=== PATIENT | female | born 1970 | race Caucasian/White ===

== ENCOUNTER → 2023-11-03 15:20 | Outpatient (REF) | payer OTHER, SELFPAY | LOC: HWRAD 15:20 | PROVIDERS: ATTENDING PHYSICIAN Nurse Practitioner Family | DX: J18.9 Pneumonia, unspecified organism (principal) | CPT/HCPCS: 71046 ==

== ENCOUNTER → 2023-11-21 12:18 | Outpatient (REF) | payer OTHER, SELFPAY | LOC: WDC 12:18 | PROVIDERS: ATTENDING PHYSICIAN Nurse Practitioner Family | DX: Z12.31 Encounter for screening mammogram for malignant neoplasm of breast (principal) | CPT/HCPCS: 77063; 77067 ==

== ENCOUNTER → 2024-09-05 11:46 | Outpatient (REF) | payer OTHER, SELFPAY | LOC: HWRAD 11:46 | PROVIDERS: ATTENDING PHYSICIAN Nurse Practitioner Family | DX: M25.521 Pain in right elbow (principal) | CPT/HCPCS: 73080 ==

== ENCOUNTER → 2024-12-10 10:28 | Outpatient (REF) | payer OTHER, SELFPAY | LOC: HWWDC 10:28 | PROVIDERS: ATTENDING PHYSICIAN Nurse Practitioner Family; FAMILY PHYSICIAN Nurse Practitioner Family | DX: Z12.31 Encounter for screening mammogram for malignant neoplasm of breast (principal) | CPT/HCPCS: 77063; 77067 ==

== ENCOUNTER → 2024-12-12 10:00 | Outpatient (REF) | payer OTHER, SELFPAY | LOC: HWRAD 10:00 | PROVIDERS: ATTENDING PHYSICIAN Nurse Practitioner Family; FAMILY PHYSICIAN Nurse Practitioner Family | DX: N93.9 Abnormal uterine and vaginal bleeding, unspecified (principal) | CPT/HCPCS: 76830; 76856 ==

== ENCOUNTER → 2024-12-17 09:32 | Outpatient (REF) | payer OTHER, SELFPAY | LOC: WDC 09:32 | PROVIDERS: ATTENDING PHYSICIAN Nurse Practitioner Family; FAMILY PHYSICIAN Nurse Practitioner Family | DX: R92.8 Other abnormal and inconclusive findings on diagnostic imaging of breast (principal) | CPT/HCPCS: 76642 ==

== ENCOUNTER → 2024-12-21 11:59 | Outpatient (REF) | payer OTHER, SELFPAY ==
--- NOTE | 2024-12-21 15:26 | OID.BR.INTR ---
[facility] Breast Navigator - Initial
- -
Did not meet patient at time of biopsy. Will follow up per protocol.
== END ==
LOC: WDC 11:59
PROVIDERS: ATTENDING PHYSICIAN Nurse Practitioner Family; FAMILY PHYSICIAN Nurse Practitioner Family
DX: N63.12 Unspecified lump in the right breast, upper inner quadrant (principal)
CPT/HCPCS: 88305; 19083; A4648

== ENCOUNTER → 2025-01-09 11:49 | Outpatient (REF) | payer OTHER, SELFPAY | LOC: MRI 3T 11:49 | PROVIDERS: ATTENDING PHYSICIAN Surgery; FAMILY PHYSICIAN Nurse Practitioner Family | DX: C50.411 Malignant neoplasm of upper-outer quadrant of right female breast (principal); Z17.0 Estrogen receptor positive status [ER+]; Z17.1 Estrogen receptor negative status [ER-] | CPT/HCPCS: 77049; A9585 ==

== ENCOUNTER → 2025-01-18 08:29 | Outpatient (REF) | payer OTHER, SELFPAY | LOC: RAD 08:29 | PROVIDERS: ATTENDING PHYSICIAN Surgery; FAMILY PHYSICIAN Nurse Practitioner Family | DX: R92.8 Other abnormal and inconclusive findings on diagnostic imaging of breast (principal); K76.9 Liver disease, unspecified | CPT/HCPCS: 76700 ==

== ENCOUNTER 2025-02-04 06:15 | Day surgery (SDC) | payer OTHER, SELFPAY ==
[2025-01-28 08:47] LABS: % Basophils 0.6 % (0-2); % Eosinophils 2.5 % (0-6); % Immature Granulocytes 0.6 % (0-0.5); % Lymphocytes 48.6 % (20.5-51.1); % Neutrophils 40.7 % (42.2-75.2); Absolute Eosinophils 0.2 10^3/uL (0-0.7); Absolute Lymphocytes 3.1 10^3/uL (1.2-3.4); Absolute Monocytes 0.5 10^3/uL (0.1-0.6); Absolute Neutrophils 2.6 10^3/uL (1.4-6.5); Hematocrit 38.9 % (37.0-47.0); Hemoglobin 13.4 g/dL (12.0-16.0); Mean Corp Hgb Conc. 34.4 g/dL (33.0-37.0); Mean Corpuscular Hgb 33.4 pg (27.0-31.0); Mean Platelet Volume 9.2 fL (7.4-10.4); Nucleated Red Blood Cells % 0 %; Platelet Count 214 10^3/uL (130-400); Red Blood Cell Count 4.01 10^6/uL (4.20-5.40); Red Cell Dist. Width 13.2 % (11.5-14.5); White Blood Cell Count 6.4 10^3/uL (4.8-10.8)
[2025-01-28 09:36] LABS: Beta HCG Quantitative < 2.39 mIU/ml
[2025-01-28 09:38] LABS: Blood Urea Nitrogen 14 mg/dl (7-17); Calcium 9.4 mg/dl (8.4-10.2); Carbon Dioxide 25 mmol/L (22-30); Chloride 111 mmol/L (98-107); Glucose 81 mg/dl (70-99); Sodium 147 mmol/L (135-145); eGFR > 60.00
[2025-01-28 14:02] VITALS: BMI 31.2
[2025-02-04] VITALS (8 sets, daily range): BP systolic 132–157; BP diastolic 73–97; BMI 31.2
[2025-02-04] MEDS: TYLENOL 1000 MG PO (09:27)
[2025-02-04] MEDS: NEURONTIN 300 MG PO (09:27)
[2025-02-04] MEDS: NORMOSOL-R/PLASMALYTE-A 1000 IV (09:28)
--- NOTE | 2025-02-04 13:39 | W.IMMPOSTOP ---
Surgical Immed Post Op Note
-
Primary Surgeon: Karolina Cruz DO
Assisting Surgeon: none
Pre-op Diagnosis: Menorrhagia; endometrial mass
Post-op Diagnosis: same; endometrial polyp
Procedure Performed: Hysteroscopy D&C polypectomy with Myosure
Anesthesia Type: general LMA Dr Velazquez
Specimen / Cultures: 1. endocervical curettings 2. endometrial curettings 3. fragments of resected endoemtrial mass
Estimated Blood Loss: 2ml
Fluid deficit: 90mL NSS
Complications: none
Operative Findings: Uterus sounded to 8cm; bilateral tubal ostia seen. Endometrial polyp seen.
Counts correct times 2.
stable to recovery.
== END 2025-02-04 15:23 | disposition home or self-care (01) ==
LOC: SDS 06:15
PROVIDERS: ATTENDING PHYSICIAN Obstetrics & Gynecology; FAMILY PHYSICIAN Nurse Practitioner Family
DX: N84.0 Polyp of corpus uteri (principal); N92.0 Excessive and frequent menstruation with regular cycle; D26.1 Other benign neoplasm of corpus uteri
CPT/HCPCS: 58558; 88305; 80048; 84702; 85025; 86850; 86900; 86901

== ENCOUNTER 2025-02-26 06:39 | Inpatient (IN) | payer OTHER, SELFPAY ==
[2025-02-22 15:27] LABS: Prealbumin (Transthyretin) 26.7 mg/dl (17.6-36.0)
[2025-02-22 15:47] LABS: Vitamin D, 25-OH*** 32.5 ng/mL (30-80)
[2025-02-26] VITALS (10 sets, daily range): BP systolic 5–141; BP diastolic 62–90; BMI 32.4
[2025-02-26] MEDS: NORMOSOL-R/PLASMALYTE-A 1000 IV (07:40)
[2025-02-26] MEDS: TYLENOL 1000 MG PO ×2 (07:51→20:51)
[2025-02-26] MEDS: LOVENOX 40 MG SC (08:31)
--- NOTE | 2025-02-26 15:02 | W.IMMPOSTOP ---
Surgical Immed Post Op Note
-
Primary Surgeon: JONATHAN Staton MD
Assisting Surgeon:
Pre-op Diagnosis: Breast CA
Post-op Diagnosis: Same
Procedure Performed: Bilateral immediate breast reconstruction with tissue expanders, adjacent tissue transfer,
Anesthesia Type: General
Specimen / Cultures: Per Dr. Arce
Estimated Blood Loss: 40cc
Complications: None
Operative Findings: as expected
[2025-02-26] MEDS: NEURONTIN 100 MG PO ×2 (17:29→21:36)
[2025-02-26] MEDS: COLACE 100 MG PO (20:51)
[2025-02-26] MEDS: ZOLOFT 50 MG PO (21:36)
[2025-02-26] MEDS: ANCEF 5 IV (21:36)
[2025-02-27 00:05] VITALS: BP 120/73
[2025-02-27 03:03] VITALS: BP 103/63
[2025-02-27] MEDS: TYLENOL 1000 MG PO ×2 (03:10→08:20)
[2025-02-27] MEDS: ANCEF 5 IV (05:39)
[2025-02-27 07:18] LABS: Hematocrit 30.9 % (37.0-47.0); Hemoglobin 10.4 g/dL (12.0-16.0)
[2025-02-27 07:40] VITALS: BP 122/71
[2025-02-27 08:05] LABS: Blood Urea Nitrogen 6 mg/dl (7-17); Calcium 8.4 mg/dl (8.4-10.2); Carbon Dioxide 24 mmol/L (22-30); Chloride 109 mmol/L (98-107); Estimated Creatinine Clearance 110 ml/min; Glucose 113 mg/dl (70-99); Potassium 4.3 mmol/L (3.5-5.1); Sodium 137 mmol/L (135-145); eGFR > 60.00
[2025-02-27] MEDS: NEURONTIN 100 MG PO (08:20)
[2025-02-27] MEDS: NORVASC 2.5 MG PO (08:20)
[2025-02-27] MEDS: AVAPRO 300 MG PO (08:20)
[2025-02-27] MEDS: COLACE 100 MG PO (08:20)
--- NOTE | 2025-02-27 09:54 | CM ---
CM met with patient in room. Patient does not have a history of VN, SNF or DME. Patient is active with her PCP. Patent uses [facility] in [place] for medication services.
Patient is agreeable to [facility]. CHIQUIS updated [facility] Admission RN with new referral.
PLAN: Home with [facility]
--- NOTE | 2025-02-27 10:49 | VNURNOTE ---
Home Health Liaison met with patient and spouse at bedside to discuss [facility] nurse/therapy, visits, schedule and homebound status. Patient is agreeable and understands that visits at home will be 2-3 x per week to assess and teach medical and drain
management. Patient is aware that [facility] will contact them for start of care in 1-2 days after discharge from .
[facility] referral completed in [facility].
--- NOTE | 2025-02-27 10:49 | W.DCSUMMARY ---
Discharge Summary
Discharge Data
Date of Admission: 02/26/25
Date of Discharge: 02/27/25
Discharge Plan
-
Patient Disposition: Home (Routine Discharge)
Discharge Diagnosis/Procedures: s/p b/l mastectomy and immediate reconstruction
Condition: Good
Diet: Regular
Activity: No strenuous activity
Additional Activity: No heavy lifting >10lbs, T KWAME arms for ROM
Driving Restrictions: Not until seen by your Dr
Bathing Restrictions: OK to Shower
Other Services: [facility]
Wound Care: Nitro bid to nipples, small amout; ABD pads and compression bra; record drain output twice daily and strip as needed
Referrals:
Gerald Mills CRNP [Family Provider] -
Prescriptions:
New
tramadol 50 mg Tablet
50 mg PO Q6HPRN PRN (Reason: pain) 7 Days Qty: 15 0RF
acetaminophen [Tylenol Extra Strength] 500 mg Tablet
1,000 mg PO Q6H 30 Days Qty: 240 0RF
docusate sodium 100 mg Capsule
100 mg PO BID 14 Days Qty: 28 0RF
gabapentin 100 mg Capsule
100 mg PO TID 90 Days Qty: 270 0RF
diazepam 5 mg Tablet
5 mg PO TIDPRN PRN (Reason: Muscle Spasms) 14 Days Qty: 24 0RF
cefadroxil 500 mg capsule
500 mg PO BID Qty: 42 0RF
nitroglycerin [Nitro-Bid] 2 % ointment
1 inch transdermal DAILY 3 Days Qty: 30 0RF
Continued
cetirizine [Zyrtec] 10 mg Tablet
10 mg PO HS
sertraline [Zoloft] 50 mg Tablet
50 mg PO HS
irbesartan [Avapro] 300 mg Tablet
300 mg PO DAILY
cholecalciferol (vitamin D3) [Vitamin D3] 50 mcg (2,000 unit) Capsule
50 mcg PO DAILY
mecobalamin (vitamin B12) [B12 Active] 1,000 mcg Tablet,Chewable
1,000 mcg PO DAILY
amlodipine 2.5 mg Tablet
2.5 mg PO DAILY
fluticasone propionate 50 mcg/actuation [place],Suspension
1 spray INTRANASAL PRN PRN (Reason: allergies)
melatonin 5 mg Tablet
5 mg PO HS PRN (Reason: sleep)
Discharge Orders:
Discharge Patient (As Directed); Ordered 02/27/25
Ordered By: Landon Staton
Discharge Date and Time
Print Language: [place]
--- NOTE | 2025-02-27 10:49 | W.PN.PLAS ---
Progress Note
Objective Data
Vital Signs
Temp Pulse Resp BP Pulse Ox
98.6 F 74 16 122/71 98
02/27/25 07:40 02/27/25 07:40 02/27/25 07:40 02/27/25 07:40 02/27/25 08:16
Intake and Output
02/26/25 02/27/25 02/28/25
06:59 06:59 06:59
Intake Total 1030 / 1030
Output Total 297 / 297 170 / 170
Balance 733 / 733 -170 / -170
Intake:
Oral fluids 720 / 720
IV fluids (Total) 300 / 300
Normosol 300 / 300
IV piggybacks 10
Output:
Drain Output (Total) 297 / 297 170 / 170
Left Lower Breast C 105 / 105 30 / 30
Left Lower Breast Jose-Campos
D
Right Lower Breast Jose- 17 / 17 60 / 60
Campos A
Right Lower Breast Jose- 150 / 150 80 / 80
Campos B
Other:
Number of approximated MODERATE 2
amounts of urine
Lab Results
02/27/25 06:13
02/27/25 06:13
Assessment / Plan
Wound stable. Patient continues to improve. Doing well. Patient anxious to go.
Patient is stable. Will discharge to home once patient is able to ambulate, void, tolerate a PO diet and pain is adequately controlled.
Visiting Nurse care ordered / not ordered.
Wound care discussed with patient.
Follow up within days.
Follow up with family physician for any medical issues.
Patient given any appropriate scripts at office pre op visit.
[2025-02-27 11:15] VITALS: BP 122/73
--- NOTE | 2025-02-28 12:12 | W.IMMPOSTOP ---
Surgical Immed Post Op Note
-
Primary Surgeon: Yazmin
Assisting Surgeon: None
Pre-op Diagnosis: Right breast ca
Post-op Diagnosis: Right breast ca
Procedure Performed: Bilateral mastectomies and right sentinel node mapping and biopsy
Anesthesia Type: LMA general
Specimen / Cultures: Bilateral breasts, right sentinel nodes
Estimated Blood Loss: 50cc
Complications: None
Operative Findings: Neg nodes on frozen
--- NOTE | 2025-02-28 12:13 | OR.RPT ---
Operative Report
Operative Report
Date of surgery: 02/26/2025
Surgeon: Yazmin
Pre-op diagnosis: Right breast carcinoma
Post-op diagnosis: Right breast carcinoma
Procedure bilateral mastectomies and right sentinel lymph node mapping and biopsy
The patient is a 54-year-old female with right breast carcinoma who desired treatment through bilateral mastectomies right sentinel lymph node mapping and biopsy and immediate reconstruction with bilateral tissue expanders performed by Dr. Staton.
On the day prior to the procedure the patient presented to the breast imaging center where technetium radiotracer was injected into the right breast parenchyma. On the day of surgery the patient presented to the same-day surgical services where she
verified site and procedure. She was prepped and DVT and antibiotic prophylaxis were provided. Dr. Ortiz had marked the proposed incisions which included performing a nipple sparing mastectomy basing its vascularity on an inferior skin flap
which will be used to perform a simultaneous mastopexy.
Patient was taken to the operating room and in the supine position general anesthesia with an LMA mask was induced. Arias catheter was inserted using aseptic technique and both breast and axillae were prepped and draped in usual sterile fashion.
We began with the left side and using the incision was marked by Dr. Ortiz they were entered sharply with the blade. Skin flaps were elevated with the PlasmaBlade and a lighted retractor. The breast was taken off the chest wall and a superior to
inferior dimension. Time out of body was noted and specimens were oriented for the pathologist. Both sides were performed in the same fashion and on the right side after the breast was removed, the pectoral fascia was incised and the gamma probe
was used to identify sentinel node packets. There were 3 packets resected with a total of 5 lymph nodes which were negative on frozen section analysis. Feeding vessels to the nose were controlled with 3-[address] Staton continue with the
reconstructive portion of the procedure but at this juncture all sponge needle and instrument counts were correct
([id number], right [id number])
Menlo Node Bx Breast Cancer
Menlo Node Bx Breast Cancer
Operation performed with curative intent: Yes
Tracer(s) to ID Menlo Nodes in Non-Neoadjuvant setting: Radioactive Tracer
Tracer(s) to ID Sentinal Nodes in the Neoadjuvant Setting: N/A
All nodes at end of dye-filled Lymphatic Channel removed: N/A
All Significantly Radioactive Nodes were removed: Yes
All Palpably Suspicious Nodes were Removed: Yes
Bx Proven Pos Nodes Marked Prior to Chemo ID'd & Removed: N/A
== END 2025-02-27 12:29 | disposition home health service (06) | DRG 581 ==
LOC: 2 SOUTH 06:39
PROVIDERS: Surgery; ADMITTING PHYSICIAN Surgery Plastic and Reconstructive Surgery; FAMILY PHYSICIAN Nurse Practitioner Family
PROC: 0HTV0ZZ Resection of Bilateral Breast, Open Approach (ICD-10-PCS; 2025-02-26)
PROC: 0HRV0JZ Replacement of Bilateral Breast with Synthetic Substitute, Open Approach (ICD-10-PCS; 2025-02-26)
PROC: 07B80ZX Excision of Right Internal Mammary Lymphatic, Open Approach, Diagnostic (ICD-10-PCS; 2025-02-26)
PROC: 07B90ZX Excision of Left Internal Mammary Lymphatic, Open Approach, Diagnostic (ICD-10-PCS; 2025-02-26)
DX: C50.411 Malignant neoplasm of upper-outer quadrant of right female breast (principal); Z88.5 Allergy status to narcotic agent
CPT/HCPCS: 88307; 88332; 36415; 38792; 76942; 80048; 82306; 84134; 85014; 85018; 88331; 88342; A9541; C1789; L8000

== ENCOUNTER 2025-06-26 06:19 | Day surgery (SDC) | payer OTHER, SELFPAY ==
[2025-06-26] VITALS (10 sets, daily range): BP systolic 117–155; BP diastolic 69–89; BMI 35.3
[2025-06-26] MEDS: TYLENOL 1000 MG PO (10:51)
[2025-06-26] MEDS: NORMOSOL-R/PLASMALYTE-A 1000 IV (10:52)
--- NOTE | 2025-06-26 13:59 | W.IMMPOSTOP ---
Surgical Immed Post Op Note
-
Primary Surgeon: JONATHAN Staton MD
Assisting Surgeon:
Pre-op Diagnosis: H/o Breast CA, s/p mastectomy
Post-op Diagnosis: Same
Procedure Performed: Bilateral removal of tissue expanders and replacement with silicone gel breast implants, suction assisted lipectomy of trunk
Anesthesia Type: GA
Specimen / Cultures: None
Estimated Blood Loss: 30cc
Complications: None
Operative Findings: As expected
--- NOTE | 2025-06-26 14:02 | OR.RPT ---
Operative Report
Operative Report
Date of surgery: 06/26/2025
Preoperative diagnosis:
1. History of breast cancer
2. 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
Postoperative diagnosis: Same
Procedure:
1. Bilateral removal of tissue expanders, breast
2. Bilateral insertion of silicone gel implants, breast
3. Suction assisted lipectomy of trunk, bilateral chest wall
Anesthesia: General
Complications: None
EBL: 30 cc
Specimens: None
Indications for procedure: Patient is a 55-year-old female with a diagnosis of breast cancer and underwent bilateral mastectomy. She received an immediate reconstruction with tissue expanders at the time and went on to subsequently healed.
Discussion was had about her definitive reconstruction and she desired to proceed with bilateral implant-based reconstruction with silicone gel implants. Risk of implants were reviewed at length and FDA checklist were reviewed and signed. Risks
include rupture, capsular contracture, infection, rippling or wrinkling, palpability. A plan was made to contour the lateral breast and chest wall using suction assisted lipectomy as an adjunct to her breast reconstructive technique. Decision to
undergo fat grafting would be made should contour abnormalities develop or volume deficiencies be obvious with the implant exchange. She understood the risk of the procedure and desire to proceed. Consents were signed accordingly
Procedure in detail: Patient was identified preoperatively and the surgical site was confirmed to be the bilateral breast and lateral chest wall. All questions were answered and consents were confirmed. Patient was taken back to the operating room
placed supine on table. Anesthesia was induced and the patient was prepped and draped in usual sterile fashion using ChloraPrep solution. Timeout for patient safety was performed was confirmed that preoperative antibiotics were administered and
bilateral SCDs were in place. Procedure began with the injection 1% lidocaine with epinephrine in the proposed inframammary incision. Procedure began on the right side where a 15 blade was used to incise the prior scar around the length of 4.5 cm.
Dissection continued with Bovie electrocautery until the implant capsule was reached. A capsulotomy was performed and the tissue towboat engineer was removed thorough irrigation was performed and medial and superior capsulotomies were performed. A gel
sizer was placed in the pocket and it was determined that a 700 cc implant would be appropriate to give her the size and shape she desired. The pocket was thoroughly irrigated with double antibiotic solution followed by dilute Betadine. New gloves
were donned and using a 'no touch' technique a 700 cc high-profile Sientra silicone gel implant was placed into the right side using a Rosado funnel. The wound was closed with 2-0 Vicryl followed by 3-0 and 4-0 Monocryl. Attention was then drawn
to the left side where the exact same procedure was performed. Inframammary incision was made after the injection of local followed by dissection down to the implant capsule where a capsulotomy was performed. The towboat engineer was removed and medial
and superior capsulotomies were performed expanded breast pocket. On this side, additional capsulotomies needed be performed laterally to achieve symmetry. A 700 cc high-profile Sientra silicone gel implant was placed into the left side using a
'no touch' technique and a Rosado funnel after irrigating with double antibiotic solution and Betadine. Wound was closed in layers using 2-0 Vicryl followed by 3-0 and 4-0 Monocryl. Attention was then drawn to the lateral chest wall and lateral
breast where tumescent solution was distributed over the bilateral sites. An appropriate mount time was taken and lipo aspiration was then performed using a 4 mm cannula. Suction assisted lipectomy of the trunk was done to achieve greater symmetry
and defined the lateral contour of the breast reconstruction. A total of 800 cc of tumescent solution was placed and 800 cc of aspirate was removed. Patient tolerated the procedure well, was performed out complication and all counts were correct
at the end the case. He was extubated taken the PACU further care after the wounds were dressed.
[2025-06-26] MEDS: ZOFRAN 4 MG IV (14:20)
== END 2025-06-26 15:48 | disposition home or self-care (01) ==
LOC: SDS 06:19
PROVIDERS: ATTENDING PHYSICIAN Surgery Plastic and Reconstructive Surgery
DX: C50.911 Malignant neoplasm of unspecified site of right female breast (principal); Z42.1 Encounter for breast reconstruction following mastectomy; Z90.13 Acquired absence of bilateral breasts and nipples
CPT/HCPCS: 11970; 15877

== ENCOUNTER → 2025-08-02 14:17 | Outpatient (REF) | payer OTHER, SELFPAY | LOC: HWRAD 14:17 | PROVIDERS: ATTENDING PHYSICIAN Nurse Practitioner Family; FAMILY PHYSICIAN Obstetrics & Gynecology | DX: M79.672 Pain in left foot (principal) | CPT/HCPCS: 73630 ==

== ENCOUNTER → 2025-08-12 14:50 | Outpatient (REF) | payer OTHER, SELFPAY | LOC: WDC 14:50 | PROVIDERS: ATTENDING PHYSICIAN Surgery Plastic and Reconstructive Surgery; FAMILY PHYSICIAN Nurse Practitioner Family | DX: N64.1 Fat necrosis of breast (principal) | CPT/HCPCS: 76642 ==